=== PATIENT | male | born 1965 | race Caucasian/White ===

== ENCOUNTER 2022-01-07 08:15 | Day surgery (SDC) | payer MEDICAID ==
[2022-01-01 12:09] LABS: BASOPHILS # (AUTO) 0.1 X10'3 (0-0.2); BASOPHILS % (AUTO) 1.1 % (0-1); EOSINOPHILS # (AUTO) 0.1 X10'3 (0-0.9); EOSINOPHILS % (AUTO) 3.2 % (0-6); LYMPHOCYTES # (AUTO) 1.5 X10'3 (1.1-4.8); LYMPHOCYTES % (AUTO) 34.1 % (21-51); MEAN CORPUSCULAR HEMOGLOBIN 28.6 PG (27.0-31.0); MEAN CORPUSCULAR HGB CONC 33.7 g/dL (33.0-36.5); MEAN CORPUSCULAR VOLUME 84.9 FL (78-98); MEAN PLATELET VOLUME 6.7 FL (7.4-10.4); MONOCYTES # (AUTO) 0.5 X10'3 (0-0.9); MONOCYTES % (AUTO) 10.3 % (2-12); NEUTROPHILS # (AUTO) 2.3 X10'3 (1.8-7.7); NEUTROPHILS % (AUTO) 51.3 % (42-75); PRE OP HEMATOCRIT 43.1 % (42.0-52.0); PRE OP HEMOGLOBIN 14.5 g/dL (14.0-17.9); PRE OP PLATELET COUNT 327 X10'3 (140-440); RED BLOOD COUNT 5.08 X10'6 (4.70-6.10); RED CELL DISTRIBUTION WIDTH 13.8 % (11.5-14.5)
[2022-01-01 12:29] LABS: ALBUMIN 3.7 G/DL (3.4-5.0); ALBUMIN/GLOBULIN RATIO 0.8 (1.1-1.5); ALKALINE PHOSPHATASE 83 IU/L (46-116); BLOOD UREA NITROGEN 18 MG/DL (7-18); BUN/CREATININE RATIO 16.7 (5.4-32.0); CALCIUM 8.5 MG/DL (8.5-10.1); CHLORIDE 104 MMOL/L (99-107); CREATININE 1.08 MG/DL (0.60-1.10); PRE OP ALT 23 U/L (30-65); PRE OP ANION GAP 9 (8-16); PRE OP AST 14 U/L (10-37); PRE OP BILIRUB, TOTAL 0.3 MG/DL (0.0-1.0); PRE OP GLUCOSE 79 MG/DL (70-104); PRE OP POTASSIUM 4.1 MMOL/L (3.4-5.1); PRE OP SODIUM 140 MMOL/L (135-145); TOTAL CARBON DIOXIDE 26.6 MMOL/L (24-32); TOTAL PROTEIN 8.1 G/DL (6.4-8.2); eGFR 70 ML/MIN
[~2022-01-07] VITALS: Ht 177.8 cm; Wt 90.7 kg
[2022-01-07] VITALS (16 sets, daily range): BP systolic 106–130; BP diastolic 69–84
[~2022-01-07 08:15] MED LIST: NO HOME MEDS; albuterol 2.5 MG/3 ML nebule NEB ONE; famotidine 20mg tablet PO ONE; ringers solution, lacted 1,000 ML IV SCH
[2022-01-07] MEDS ORDERED: ceFAZolin inj. 2,000 MG in dextrose 5%-water 100 ML IV ONE (09:05)
[2022-01-07] MEDS ORDERED: BUPIVAcaine 0.5% inj/PF 30 ML ONE (09:59)
[2022-01-07] MEDS ORDERED: LIDOcaine 1% 30ml preserv. free vial ONE (09:59)
[2022-01-07] MEDS ORDERED: sevoflurane 250ml liquid IH ONE (10:05)
[2022-01-07] MEDS ORDERED: midazolam 1 mg/ML 2ml injection ONE (10:15)
[2022-01-07] MEDS ORDERED: fentaNYL/PF 50MCG/1 ML 2ML syringe ONE (10:15)
[2022-01-07] MEDS ORDERED: BUPIVAcaine 0.5% inj/PF 30 ml vial IJ ONE (10:32)
[2022-01-07] MEDS ORDERED: LIDOcaine 2% (20mg/ml) 5ml vial ONE (11:44)
[2022-01-07] MEDS ORDERED: neostigmine methylsulfate 1 MG/ML 10ml vial ONE (11:44)
[2022-01-07] MEDS ORDERED: ePHEDrine 50MG/ML INJ. ONE (11:44)
[2022-01-07] MEDS ORDERED: ondansetron/PF 4mg/2ml inj ONE (11:44)
[2022-01-07] MEDS ORDERED: dexamethasone sod phosphate 4mg/ml inj. ONE (11:44)
[2022-01-07] MEDS ORDERED: rocuronium 10mg/ml inj IV ONE (11:44)
[2022-01-07] MEDS ORDERED: glycopyrrolate 0.2mg/ml inj ONE (11:44)
[2022-01-07] MEDS ORDERED: propofol inj 20 ML IV ONE (11:44)
[2022-01-07] MEDS ORDERED: meperidine/PF 25mg/ml syringe ONE (12:01)
--- NOTE | 2022-01-07 12:08 | NUR ---
Received from OR via [facility], accompanied by Anesthesiologist DR DAVISON and report given by AnesthesiologistRomain MORLEY ABD BANDAIDS X3 CDI. SCROTSOFY ZHAO MD AWARE. IV PATENT #20 LEFT AC. UNRESPONSIVE TO STIMULI AT THIS TIME. [employer]IST[employer] PRN Addendum: 01/07/22 at 1227 by Shalini Dyer RN Amended: Links added.
--- NOTE | 2022-01-07 12:25 | NUR ---
VSS. ABD SOFT WITH BANDAIDS X3 CDI. RESPONDS TO COMMANDS AND ANSWERS QUESTIONS APPROPRIATELY. NO COMPLAINTS AT THIS TIME
[2022-01-07] MEDS ORDERED: HYDROcodone/acetaminophen 5mg/325mg tablet PO PRN (12:30)
[2022-01-07] MEDS ORDERED: HYDROcodone/acetaminophen 10/325mg tab PO PRN (12:30)
--- NOTE | 2022-01-07 15:08 | NUR ---
PT HAS BEEN UP AMBULATING TO THE BR. VOID X2 TOTAL 300MLS, OKAY TO DC HOME PER DR ESQUIVEL WHO IS PRESENT AND SPOKE WITH PT. PT STATES ADEQUATE PAIN RELIEF AND READINESS TO C/D HOME. ABD BANDAIDS CDI, ABD NONDISTENDED. SCROTUM IS SWOLLEN AND MAY REOCCUR PER MD, PT AWARE. IV DC'D WITH CANNULA INTACT. DC INSTRUCTIONS REVIEWED WITH PT AND S/O WHO VERBALIZED UNDERSTANDING. DC HOME WITH ALL BELONGINGS VIA W/C TO PRIVATE AUTO. Addendum: 01/07/22 at 1555 by Shalini Dyer RN Amended: Links added.
== END 2022-01-07 15:08 | disposition home or self-care (01) ==
LOC: PAS 08:15
PROVIDERS: ATTEND Surgery
DX: K40.90 Unilateral inguinal hernia, without obstruction or gangrene, not specified as recurrent (principal); K40.30 Unilateral inguinal hernia, with obstruction, without gangrene, not specified as recurrent; F41.9 Anxiety disorder, unspecified; G47.33 Obstructive sleep apnea (adult) (pediatric); F17.210 Nicotine dependence, cigarettes, uncomplicated; Z79.899 Other long term (current) drug therapy; Z20.822 Contact with and (suspected) exposure to COVID-19; Z98.890 Other specified postprocedural states
CPT/HCPCS: 36415; 49650; 80053; 82948; 85025; 93005; C1781; J1100; J2175; J2250; J2405; J2704; J2710; J3010; J3490; J7030; J7120; S0020; S2900; U0003; U0005; Z7506; Z7508; Z7512; A4215; A4618

== ENCOUNTER 2024-04-26 02:47 | Emergency (ER) | payer MEDICAID ==
[~2024-04-26] VITALS: Ht 175.3 cm; Wt 90.9 kg
[~2024-04-26 02:47] MED LIST changes: -albuterol 2.5 MG/3 ML nebule NEB ONE; -famotidine 20mg tablet PO ONE; -ringers solution, lacted 1,000 ML IV SCH
[2024-04-26 03:36] LABS: BILIRUBIN,URINE NEGATIVE (Neg); CLARITY,URINE CLEAR (Clear); COLOR,URINE YELLOW (Yellow); GLUCOSE, URINE NEGATIVE (Neg); KETONES,URINE NEGATIVE (Neg); LEUKOCYTE ESTERASE ,URINE NEGATIVE (Neg); NITRITES, URINE NEGATIVE (Neg); OCCULT BLOOD,URINE NEGATIVE (Neg); PH,URINE 5.5 (4.8-8.0); PROTEIN,URINE NEGATIVE (Neg); UROBILINOGEN,URINE 0.2 E.U/dL (0.2-1.0)
[2024-04-26 03:39] LABS: UA COLLECTION TYPE CLN CATCH MIDSTREAM
[2024-04-26 07:12] VITALS: BP 117/81; PULSE 70; RESP 16; TEMP 98; O2SAT 97
== END 2024-04-26 07:15 | disposition home or self-care (01) ==
LOC: ER 02:48
DX: K40.90 Unilateral inguinal hernia, without obstruction or gangrene, not specified as recurrent (principal); N43.2 Other hydrocele
CPT/HCPCS: 76870; 81003; 93976; 99284